=== PATIENT | female | born 1970 | race Caucasian/White ===

== ENCOUNTER → 2016-08-02 | Outpatient (CLI) | payer OTHER | END | disposition home or self-care (01) | LOC: YCFC.O 09:26 | PROVIDERS: ATTEND Nurse Practitioner Family | DX: M25.50 Pain in unspecified joint (principal); E07.9 Disorder of thyroid, unspecified; R53.83 Other fatigue ==

== ENCOUNTER → 2016-09-27 | Outpatient (CLI) | payer OTHER ==
--- NOTE | 2016-09-28 10:08 | RAD ---
EXAM DESCRIPTION: Shoulder,Right 2 or More Views CLINICAL HISTORY: SHOULDER PAIN COMPARISON: None Available. TECHNIQUE: Two views of the right shoulder. FINDINGS: There is good internal and external rotation. There is no fracture or bone lesion. There are no significant degenerative changes observed. IMPRESSION: 1. Normal shoulder. Electronically signed by: Rob Brown MD 09/28/2016 10:08 AM CDT
--- NOTE | 2016-09-28 10:08 | RAD ---
EXAM DESCRIPTION: Shoulder,Left 2 or More Views CLINICAL HISTORY: SHOULDER PAIN COMPARISON: None Available. TECHNIQUE: Two views of the left shoulder. FINDINGS: There is good internal and external rotation. There is no fracture or bone lesion. There are no significant degenerative changes observed. IMPRESSION: 1. Normal shoulder. Electronically signed by: Rob Brown MD 09/28/2016 10:08 AM CDT
--- NOTE | 2016-09-28 10:09 | RAD ---
EXAM DESCRIPTION: Hand,Left 3 Views CLINICAL HISTORY: HAND PAIN COMPARISON: None Available. TECHNIQUE: AP, LATERAL, AND OBLIQUE FINDINGS: Three-view left hand shows no fracture or dislocation. There is no bone lesion. There are no significant arthritic changes. There is no radiopaque foreign body. IMPRESSION: 1. 1. Negative Electronically signed by: Rob Brown MD 09/28/2016 10:09 AM CDT
--- NOTE | 2016-09-28 10:10 | RAD ---
EXAM DESCRIPTION: Hand,Right 3 Views CLINICAL HISTORY: HAND PAIN COMPARISON: None Available. TECHNIQUE: AP, LATERAL, AND OBLIQUE FINDINGS: Three-view right hand shows no fracture or dislocation. There is no bone lesion. There are no significant arthritic changes. There is no radiopaque foreign body. IMPRESSION: 1. 1. Negative Electronically signed by: Rob Brown MD 09/28/2016 10:09 AM CDT
--- NOTE | 2016-09-28 10:10 | RAD ---
EXAM DESCRIPTION: Cervical Spine,3 Views CLINICAL HISTORY: 45 years Female, NECK PAIN COMPARISON: None. FINDINGS: 3 views of the cervical spine show no vertebral body fracture or subluxation. There are small anterior osteophytes at a few levels in the mid and lower cervical spine. The facet joints are anatomically aligned, and the spinous processes are intact. Facet joint degeneration is noted at C3-4 and C4-5. IMPRESSION: Mild degenerative changes, but no acute cervical spine abnormality. Electronically signed by: Miguel Rogel MD 09/28/2016 10:10 AM CDT Workstation: [id number]
--- NOTE | 2016-09-28 10:10 | RAD ---
EXAM DESCRIPTION: Wrist,Right 3 Views CLINICAL HISTORY: 45 years, Female, WRIST PAIN COMPARISON: None TECHNIQUE: AP/ lateral/ oblique views of the right wrist. FINDINGS: Right wrist study shows no fracture or dislocation. Carpal relationships are well-maintained. No significant arthritic changes are observed. IMPRESSION: 1. Normal study Electronically signed by: Rob Brown MD 09/28/2016 10:10 AM CDT
--- NOTE | 2016-09-28 10:11 | RAD ---
EXAM DESCRIPTION: Ankle,Right 3 Views CLINICAL HISTORY: 45 years Female, ANKLE PAIN COMPARISON: None. FINDINGS: 3 views of the right ankle show no acute fracture or malalignment. The tibiotalar joint space and talar dome are fairly well-maintained. Calcaneal spurring is noted at the insertion site of the Achilles tendon. No radiopaque foreign body or soft tissue gas. IMPRESSION: Calcaneal spurring, but no acute right ankle abnormality. Electronically signed by: Miguel Rogel MD 09/28/2016 10:11 AM CDT Workstation: [id number]
--- NOTE | 2016-09-28 10:11 | RAD ---
EXAM DESCRIPTION: Wrist,Left 3 Views CLINICAL HISTORY: 45 years, Female, WRIST PAIN COMPARISON: None TECHNIQUE: AP/ lateral/ oblique views of the left wrist. FINDINGS: Left wrist study shows no fracture or dislocation. Carpal relationships are well-maintained. No significant arthritic changes are observed. IMPRESSION: 1. Normal study Electronically signed by: Rob Brown MD 09/28/2016 10:10 AM CDT
--- NOTE | 2016-09-28 10:12 | RAD ---
EXAM DESCRIPTION: Foot,Right 3 Views CLINICAL HISTORY: 45 years Female, FOOT PAIN COMPARISON: None. FINDINGS: 3 views of the right foot show no acute fracture or malalignment. The joint spaces are fairly well-maintained. Again seen is a small calcaneal spur at the insertion site of the Achilles tendon. No radiopaque foreign body or soft tissue gas. IMPRESSION: Calcaneal spurring, but no acute right foot abnormality. Electronically signed by: Miguel Rogel MD 09/28/2016 10:13 AM CDT Workstation: [id number]
--- NOTE | 2016-09-28 10:12 | RAD ---
EXAM DESCRIPTION: Ankle,Left 3 Views CLINICAL HISTORY: 45 years Female, ANKLE PAIN COMPARISON: None. FINDINGS: 3 views of the left ankle show no acute fracture or malalignment. No tibiotalar joint space narrowing. No talar dome lesion. Mild degenerative calcifications are noted adjacent to the medial malleolus. The base of the fifth metatarsal is intact. There is a small calcaneal spur at the insertion site of the Achilles tendon. IMPRESSION: Mild degenerative changes, including calcaneal spurring, but no acute left ankle abnormality. Electronically signed by: Miguel Rogel MD 09/28/2016 10:12 AM CDT Workstation: [id number]
--- NOTE | 2016-09-28 10:13 | RAD ---
EXAM DESCRIPTION: Foot,Left 3 Views CLINICAL HISTORY: 45 years Female, FOOT PAIN COMPARISON: None. FINDINGS: 3 views of the left foot show no acute fracture or malalignment. No radiopaque foreign body or soft tissue gas. No joint space narrowing. Calcaneal spurring at the insertion site of the Achilles tendon. IMPRESSION: Calcaneal spurring, otherwise unremarkable exam. Electronically signed by: Miguel Rogel MD 09/28/2016 10:13 AM CDT Workstation: [id number]
--- NOTE | 2016-09-28 10:14 | RAD ---
EXAM DESCRIPTION: Lumbar Spine 3 Views CLINICAL HISTORY: 45 years Female, BACK PAIN COMPARISON: None. FINDINGS: 3 views of the lumbar spine show no vertebral body fracture or subluxation. There are marginal ossified at several levels in the mid and lower lumbar spine without significant disc space narrowing. The spinous processes are intact. Visualized transverse processes are also intact. IMPRESSION: Mild degenerative changes, otherwise unremarkable exam. Electronically signed by: Miguel Rogel MD 09/28/2016 10:14 AM CDT Workstation: [id number]
--- NOTE | 2016-09-28 10:15 | RAD ---
EXAM DESCRIPTION: Knee,Left Complete CLINICAL HISTORY: 45 years Female, KNEE PAIN COMPARISON: None. FINDINGS: 3 views of the left knee show no acute fracture or malalignment. There is mild to moderate medial and patellofemoral joint space narrowing. Questionable tiny left knee joint effusion. Small osteophytes arise from the superior and inferior patellar poles. IMPRESSION: Mild to moderate degenerative changes involving primarily the medial and patellofemoral compartments. Possible small left knee joint effusion. Electronically signed by: Migeul Rogel MD 09/28/2016 10:15 AM CDT Workstation: [id number]
--- NOTE | 2016-09-28 10:16 | RAD ---
EXAM DESCRIPTION: Knee,Right Complete CLINICAL HISTORY: 45 years Female, KNEE PAIN COMPARISON: None. FINDINGS: 3 views of the right knee show no acute fracture or malalignment. Is mild to moderate joint space narrowing in the medial and patellofemoral compartments. No definite right knee joint effusion. IMPRESSION: [id number] degenerative changes in the medial and patellofemoral compartments. Electronically signed by: Miguel Rogel MD 09/28/2016 10:16 AM CDT Workstation: [id number]
== END | disposition home or self-care (01) ==
LOC: RAD 10:39
PROVIDERS: ATTEND Internal Medicine Sports Medicine
DX: R79.89 Other specified abnormal findings of blood chemistry (principal); R26.9 Unspecified abnormalities of gait and mobility; M54.2 Cervicalgia; M17.10 Unilateral primary osteoarthritis, unspecified knee; M54.5 Low back pain

== ENCOUNTER → 2017-01-21 | Outpatient (CLI) | payer OTHER | LOC: LAB.O 23:22 | PROVIDERS: ATTEND Internal Medicine Sports Medicine | DX: M25.50 Pain in unspecified joint (principal); M06.09 Rheumatoid arthritis without rheumatoid factor, multiple sites; M65.9 Synovitis and tenosynovitis, unspecified; Z79.899 Other long term (current) drug therapy ==

== ENCOUNTER → 2017-04-10 | Outpatient (CLI) | payer OTHER | END | disposition home or self-care (01) | LOC: YCFC.FP 03:11 | PROVIDERS: ATTEND Internal Medicine Sports Medicine | DX: E03.9 Hypothyroidism, unspecified (principal); G56.00 Carpal tunnel syndrome, unspecified upper limb ==